=== PATIENT | male | born 1955 | race Caucasian/White ===

== ENCOUNTER → 2016-10-06 11:32 | Outpatient (CLI) | payer BC | END | disposition home or self-care (01) | LOC: D.CT 11:30 | DX: R31.9 Hematuria, unspecified (principal); R10.9 Unspecified abdominal pain ==

== ENCOUNTER → 2016-11-07 17:53 | Outpatient (CLI) | payer BC | END | disposition home or self-care (01) | LOC: D.LABREF 17:53 | DX: R31.9 Hematuria, unspecified (principal) ==

== ENCOUNTER → 2017-01-18 13:01 | Outpatient (CLI) | payer BC | END | disposition home or self-care (01) | LOC: D.US 13:01 | DX: K76.89 Other specified diseases of liver (principal) ==